=== PATIENT | female | born 1990 | race Caucasian/White ===

== ENCOUNTER 2018-08-07 07:54 | Emergency (ER) | payer OTHER ==
[~2018-08-07] VITALS: Ht 157.5 cm; Wt 133.5 kg
[~2018-08-07 07:54] MED LIST: PREN-385 PO
[2018-08-07 08:04] VITALS: BP 129/79
--- NOTE | 2018-08-07 08:15 | NUR ---
PATIENT PRESENTS TO ED WITH COMPLIANTS OF VAGINAL PAIN WITH A "BUMP." PATIENT STATES THE BUMP WAS SMALL ON FRIDAY AND HAS GRADUALLY GROWN AND PAIN HAS INCREASED. BUMP IN ON LEFT LATERAL SIDE OF GROIN, DARK IN COLOR. TENDER TO TOUCH. PATIENT DENIES SHAVING AREA. PT DENIES ANY FEVER, CP, SOB, OR COUGH AT THIS TIME; PATIENT STATES PAIN OF 7/10 AT THIS TIME; VSS; PATIENT POSITIONED FOR COMFORT; HOB ELEVATED; BEDRAILS UP X1; BED DOWN. ER MD MADE AWARE OF PT STATUS.
--- NOTE | 2018-08-07 08:20 | NUR ---
Female [employer] Sales [employer] Manager accompanied female patient for Pelvic Exam.
[2018-08-07 08:37] VITALS: BP 129/79
--- NOTE | 2018-08-07 08:38 | NUR ---
Patient discharged with v/s stable. Written and verbal after care instructions given and explained. Patient alert, oriented and verbalized understanding of instructions. Ambulatory with steady gait. All questions addressed prior to discharge. ID band removed. Patient advised to follow up with PMD. Rx of MOTRIN AND CLINDAMYCIN given. Patient educated on indication of medication including possible reaction and side effects. Opportunity to ask questions provided and answered.
== END 2018-08-07 08:38 | disposition home or self-care (01) ==
LOC: MED 07:54
DX: N76.2 Acute vulvitis (principal); R03.0 Elevated blood-pressure reading, without diagnosis of hypertension; Z79.899 Other long term (current) drug therapy
CPT/HCPCS: 81025; 99283

== ENCOUNTER 2019-10-07 04:32 | Emergency (ER) | payer OTHER ==
[~2019-10-07] VITALS: Ht 157.5 cm; Wt 145.1 kg
[2019-10-07 04:35] VITALS: BP 138/82
--- NOTE | 2019-10-07 04:35 | NUR ---
TO BED # 06 AMBULATORY
--- NOTE | 2019-10-07 04:35 | NUR ---
FIRST CONTACT PATIENT BIB FAMILY C/O L SIDED FACIAL NUMBESS WITH +DROOP SINCE YESTERDAY MORNING LSN 0900 YESTERDAY. PATIENT STATES TINGLING NOTED IN EYE FIRST. PATIENT DENIES ANY TONGUE DEVIATION, NO SLURRING, NO DRIFTS NOTED TO BUE/BLE. PATIENT STATES SENSATION INTACT THROUGHOUT. PATIENT GCS 15, AAOX4, PERRLA 3/2MM BILAT. PATIENT DENIES ANY CP/SOB, NO DIZZINESS OR BLURRED VISION. DR OLIVAREZ MADE AWARE, NO CODESTROKE CALLED. WILL CONTINUE TO MONITOR
[2019-10-07] MEDS ORDERED: predniSONE 20 MG TAB PO ONE (04:50)
[2019-10-07] MEDS ORDERED: ACYCLOVIR 200 MG CAP PO ONE (04:50)
--- NOTE | 2019-10-07 05:23 | NUR ---
PATIENT TAKEN TO CT VIA WC
[2019-10-07 06:20] VITALS: BP 122/79
--- NOTE | 2019-10-07 06:20 | NUR ---
Patient discharged with v/s stable. Written and verbal after care instructions given and explained. Patient verbalized understanding. Ambulatory with steady gait. All questions addressed prior to discharge. Advised to follow up with PMD.
== END 2019-10-07 06:20 | disposition home or self-care (01) ==
LOC: MED 04:32
DX: G51.0 Bell's palsy (principal); Z79.899 Other long term (current) drug therapy
CPT/HCPCS: 70450; 99284; J7512

== ENCOUNTER 2021-04-24 09:58 | Emergency (ER) | payer OTHER ==
[~2021-04-24] VITALS: Ht 157.5 cm; Wt 147.9 kg
[2021-04-24 10:05] VITALS: BP 150/94
--- NOTE | 2021-04-24 10:09 | NUR ---
Patient ambulated to bed 9. RN evaluating the patient at bedside.
--- NOTE | 2021-04-24 10:31 | NUR ---
30/ presents to ED with c/o right lower back pain since Friday. Patient states she woke up Friday morning with right lower back pain, denies injury or trauma. Patient states it is a constant 8/10 sharp pain that worsens with movement and ambulation. Patient states she took Ibuprofen this morning with some relief. Denies dysuria, hematuria, denies abdominal pain, nausea, vomiting or diarrhea. Patient able to ambulate without assistance.
[2021-04-24] MEDS ORDERED: KETOROLAC 30 MG/ML VIAL IM ONE (11:45)
[2021-04-24] MEDS ORDERED: diazePAM 5 MG TAB PO ONE (11:45)
[2021-04-24] MEDS ORDERED: NAPR-54 PO (12:58)
[2021-04-24] MEDS ORDERED: DIAZ5TAB7 PO (12:58)
[2021-04-24 13:43] VITALS: BP 116/77
--- NOTE | 2021-04-24 13:43 | NUR ---
Patient discharged with v/s stable. Written and verbal after care instructions given and explained. Patient alert, oriented and verbalized understanding of instructions. Ambulatory with steady gait. All questions addressed prior to discharge. ID band removed. Patient advised to follow up with PMD. Rx of Valium and Naprosyn given. Patient educated on indication of medication including possible reaction and side effects. Opportunity to ask questions provided and answered.
== END 2021-04-24 13:43 | disposition home or self-care (01) ==
LOC: MED 09:58
DX: S39.012A Strain of muscle, fascia and tendon of lower back, initial encounter (principal); Z79.899 Other long term (current) drug therapy; Z98.890 Other specified postprocedural states; X50.1XXA Overexertion from prolonged static or awkward postures, initial encounter; Y93.89 Activity, other specified; Y92.89 Other specified places as the place of occurrence of the external cause; Y99.8 Other external cause status
CPT/HCPCS: 72100; 81002; 81025; 96372; 99283; J1885

== ENCOUNTER 2022-01-02 13:01 | Emergency (ER) | payer OTHER ==
[~2022-01-02] VITALS: Ht 157.5 cm; Wt 147.6 kg
[~2022-01-02 13:01] MED LIST changes: +DIAZ5TAB8 PO; +NAPR-54 PO
[2022-01-02 13:17] VITALS: BP 133/78
[2022-01-02] MEDS ORDERED: ACET-10509 PO (14:02)
[2022-01-02] MEDS ORDERED: PYR100 PO (14:02)
[2022-01-02] MEDS ORDERED: SULF-59 PO (14:02)
--- NOTE | 2022-01-02 14:18 | NUR ---
PT SEEN AND TREATED BY BLAIRE GOODRICH, NO NURSING INTERVENTIONS PROVIDED.
--- NOTE | 2022-01-02 14:19 | NUR ---
Patient discharged with v/s stable. Written and verbal after care instructions ABOUT UTI given and explained. Patient alert, oriented and verbalized understanding of instructions. Ambulatory with steady gait. All questions addressed prior to discharge. ID band removed. Patient advised to follow up with PMD. Rx of TYLENOL EXTRA STRENGTH, PYRIDIUM, AND BACTRIM DS given. Patient educated on indication of medication including possible reaction and side effects. Opportunity to ask questions provided and answered.
== END 2022-01-02 14:19 | disposition home or self-care (01) ==
LOC: MED 13:01
DX: N39.0 Urinary tract infection, site not specified (principal)
CPT/HCPCS: 81002; 81025; 99283

== ENCOUNTER 2022-01-07 17:59 | Emergency (ER) | payer OTHER ==
[~2022-01-07] VITALS: Ht 157.5 cm; Wt 146.1 kg
[~2022-01-07 17:59] MED LIST changes: +ACET-10509 PO; +PYR100 PO; +SULF-59 PO
[2022-01-07 18:24] VITALS: BP 155/94
[2022-01-07 19:44] LABS: BASOPHILS % (AUTO) 0.3 % (0.0-2.0); EOSINOPHILS # (AUTO) 0.4 K/uL (0-0.4); EOSINOPHILS % (AUTO) 3.3 % (0.0-4.0); HEMATOCRIT 43.6 % (36-48); HEMOGLOBIN 14.7 g/dL (12.0-16.0); LYMPHOCYTES # (AUTO) 3.3 K/uL (2.5-16.5); MEAN CORPUSCULAR HEMOGLOBIN 29 pg (27-31); MEAN CORPUSCULAR HGB CONC 34 g/dL (33-37); MEAN CORPUSCULAR VOLUME 84.7 fL (80-94); MONOCYTES # (AUTO) 0.8 K/uL (0.8-1.0); MONOCYTES % (AUTO) 7.4 % (1.7-9.3); NEUTROPHILS # (AUTO) 6.4 K/uL (1.8-7.7); PLATELET COUNT (AUTO) 305 K/uL (140-450); RED BLOOD CELL COUNT(AUTO) 5.15 MIL/uL (4.20-5.40); RED CELL DISTRIBUTION WIDTH 13.7 % (11.6-13.7); WHITE BLOOD COUNT (AUTO) 10.9 K/uL (4.8-10.8)
[2022-01-07 20:00] LABS: ALBUMIN 3.8 g/dL (3.4-5.0); ANION GAP 11.5 (8-16); CARBON DIOXIDE 28.5 mmol/L (21-32); CREATININE 0.8 mg/dL (0.6-1.3); TOTAL BILIRUBIN 0.4 mg/dL (0.0-1.0)
[2022-01-07] MEDS ORDERED: ACET-8386 PO (21:08)
[2022-01-07 21:25] VITALS: BP 155/94
== END 2022-01-07 21:36 | disposition home or self-care (01) ==
LOC: MED 17:59
DX: R10.9 Unspecified abdominal pain (principal); M54.50 Low back pain, unspecified; Z79.899 Other long term (current) drug therapy; Z98.890 Other specified postprocedural states
CPT/HCPCS: 36415; 80053; 81002; 81025; 83690; 85025; 99284

== ENCOUNTER 2023-04-26 20:20 | Emergency (ER) | payer OTHER ==
[~2023-04-26] VITALS: Ht 157.5 cm; Wt 134.3 kg
[~2023-04-26 20:20] MED LIST changes: +ACET-8905 PO
[2023-04-26 20:56] VITALS: BP 135/80
--- NOTE | 2023-04-26 21:02 | NUR ---
TO LOBBY FOLLOWING TRIAGE
[2023-04-26 21:22] LABS: BASOPHILS % (AUTO) 0.2 % (0.0-2.0); EOSINOPHILS % (AUTO) 0.3 % (0.0-4.0); HEMATOCRIT 43.9 % (36-48); HEMOGLOBIN 14.7 g/dL (12.0-16.0); LYMPHOCYTES # (AUTO) 1.7 K/uL (2.5-16.5); MEAN CORPUSCULAR HEMOGLOBIN 28 pg (27-31); MEAN CORPUSCULAR HGB CONC 34 g/dL (33-37); MONOCYTES % (AUTO) 7.9 % (1.7-9.3); NEUTROPHILS # (AUTO) 9.3 K/uL (1.8-7.7); NEUTROPHILS % (AUTO) 77.6 % (42.2-75.2); PLATELET COUNT (AUTO) 209 K/uL (140-450); RED BLOOD CELL COUNT(AUTO) 5.22 MIL/uL (4.20-5.40); RED CELL DISTRIBUTION WIDTH 14.4 % (11.6-13.7)
[2023-04-26 21:40] LABS: ALBUMIN 3.2 g/dL (3.4-5.0); ANION GAP 11.4 (8-16); CARBON DIOXIDE 28.5 mmol/L (21-32); CREATININE 0.9 mg/dL (0.6-1.3); POTASSIUM 4.9 mmol/L (3.5-5.1); TOTAL BILIRUBIN 0.5 mg/dL (0.0-1.0)
--- NOTE | 2023-04-26 21:55 | NUR ---
PT TO BED #6
--- NOTE | 2023-04-26 22:00 | NUR ---
32YR OLD FEMALE BIB SELF C/O ABD PAIN X1DAY. MID ABD NON RADIATING 8/10 SHARP PAIN. +V/D X1DAY. DENIES CP OR SOB. PT DENIES PAIN OR DIFFCULTILTY WITH URINATION. NKDA NO MED HX
[2023-04-26] MEDS ORDERED: ONDANSETRON 4 MG/2 ML VIAL IVP ONE (22:30)
[2023-04-26] MEDS ORDERED: MORPHINE SULFATE 4 MG/ML SYR IVP ONE (22:30)
[2023-04-26] MEDS ORDERED: NACL 0.9% 1,000 ML IV ONE (22:30)
[2023-04-26] MEDS ORDERED: DICYCLOMINE HCL LIQUID 20 MG, ALUMINUM HYD/MAG/SIMETHICONE 30 ML, LIDOCAINE VISCOUS 2% ... PO ONE ×3 (23:00)
[2023-04-26] MEDS ORDERED: ALUMINUM HYD/MAG/SIMETHICONE 30 ML UDC ONE (23:10)
[2023-04-26] MEDS ORDERED: DICYCLOMINE HCL LIQUID 10 MG/5 ML UDC ONE (23:11)
--- NOTE | 2023-04-27 00:33 | NUR ---
PT SLEEPING WITH HOB ELEVATED. ON BEDSIDE RN SCHOOL. RESP EVEN AND UNLABORED. PAIN LEVEL 4/10
[2023-04-27 01:18] LABS: APPEARANCE,URINE CLEAR (CLEAR); BILIRUBIN,URINE NEGATIVE (NEGATIVE); BLOOD, URINE NEGATIVE (NEGATIVE); COLOR,URINE YELLOW (YELLOW); LEUKOCYTE ESTERASE ,URINE NEGATIVE (NEGATIVE); NITRITE, URINE NEGATIVE (NEGATIVE); UGLUCOSE 3+ (NEGATIVE)
[2023-04-27] MEDS ORDERED: KETOROLAC 30 MG/ML VIAL IVP ONE (02:25)
--- NOTE | 2023-04-27 02:35 | NUR ---
PT TO CT
--- NOTE | 2023-04-27 02:46 | NUR ---
PT BACK FROM CT
--- NOTE | 2023-04-27 04:57 | NUR ---
PT SLEEPING WITH HOB ELEVATED. ON BEDSIDE THEATRICAL TROUPER. RESP EVEN AND UNLABORED. VS WNL
[2023-04-27] MEDS ORDERED: BEN10 PO (07:06)
[2023-04-27] MEDS ORDERED: MAG-27 PO (07:06)
--- NOTE | 2023-04-27 07:19 | NUR ---
REPORT RECEIVED FROM BASIL WU. ALL QUESTIONS ANSWERED.
--- NOTE | 2023-04-27 07:31 | NUR ---
32YO F PRESENTS ABD PAIN, N,V,D, CALLEJAS X 1 DAY. DENIES FEVERS, CHILLS, CHANGE IN FOOD DIET. SAFETY MAINTAINED. NAD.
[2023-04-27] MEDS ORDERED: MORPHINE SULFATE 4 MG/ML SYR IVP ONE (07:50)
--- NOTE | 2023-04-27 08:12 | NUR ---
pt swabbed for covid(tiara) walked to lab
--- NOTE | 2023-04-27 08:51 | NUR ---
PT IN CT
--- NOTE | 2023-04-27 10:18 | NUR ---
IV removed, catheter intact and site benign. Applied folded 4x4 gauze and tape to stop bleeding.
[2023-04-27 10:54] VITALS: BP 128/76
--- NOTE | 2023-04-27 10:54 | NUR ---
Patient discharged with v/s stable. Written and verbal after care instructions given and explained. Patient alert, oriented and verbalized understanding of instructions. Ambulatory with steady gait. All questions addressed prior to discharge. ID band removed. Patient advised to follow up with PMD. Rx of VINAY JOSE given. Opportunity to ask questions provided and answered.
--- NOTE | 2023-04-27 10:58 | NUR ---
The patient's care was reviewed and supervised by [place] [facility], RN.
== END 2023-04-27 10:58 | disposition home or self-care (01) ==
LOC: MED 20:20
DX: R10.13 Epigastric pain (principal); R11.10 Vomiting, unspecified; R19.7 Diarrhea, unspecified; M79.18 Myalgia, other site; E11.9 Type 2 diabetes mellitus without complications; Z98.890 Other specified postprocedural states; Z79.899 Other long term (current) drug therapy
CPT/HCPCS: 36415; 74174; 74176; 80053; 81003; 81025; 83605; 83690; 85025; 96361; 96374; 96375; 96376; 99285; J1885; J2270; J2405; J7030; Q9967